=== PATIENT | male | born 1980 | race Caucasian/White ===

== ENCOUNTER 2021-12-28 15:08 | Inpatient (IN) | payer MEDICAID ==
[~2021-12-28] VITALS: Ht 170.2 cm; Wt 73.9 kg
[~2021-12-28 15:08] MED LIST: ARIP15TA27 PO; LURA20TA PO; OMEP20 PO
[2021-12-28 16:04] LABS: BASOPHILS % (AUTO) 0.7 % (0.0-2.0); EOSINOPHILS % (AUTO) 2.1 % (1.0-6.0); HEMATOCRIT 42.2 % (41-53); LYMPHOCYTES # (AUTO) 2.1 K/uL (1.0-4.8); LYMPHOCYTES % (AUTO) 31.9 % (22.0-44.0); MEAN CORPUSCULAR HEMOGLOBIN 29.5 pg (26.0-34.0); MEAN CORPUSCULAR HGB CONC 33.3 G/dL (31.0-37.0); MEAN CORPUSCULAR VOLUME 89 fL (80-100); MONOCYTES # (AUTO) 0.4 K/uL (0.1-1.0); MONOCYTES % (AUTO) 6.8 % (2.0-9.0); NEUTROPHILS # (AUTO) 3.8 K/uL (1.8-7.7); NEUTROPHILS % (AUTO) 58.5 % (40.0-70.0); PLATELET COUNT (AUTO) 269 K/uL (150-450); RED BLOOD CELL COUNT(AUTO) 4.75 MIL/uL (4.50-5.90); RED CELL DISTRIBUTION WIDTH 13.8 % (11.5-14.5)
[2021-12-28 16:11] LABS: ANION GAP 6 mmol/L (8-16); CALCIUM, TOTAL 8.9 mg/dL (8.8-10.5); CARBON DIOXIDE 30 mmol/L (22-29); CHLORIDE 103 mmol/L (98-107); CREATININE 0.88 mg/dL (0.60-1.30); GLOMERULAR FILTR. RATE CALC > 60 mL/min (>60); GLUCOSE,RANDOM 99 mg/dL (70-110); POTASSIUM 4.1 mmol/L (3.5-5.1); SODIUM SERUM 139 mmol/L (136-145); UREA NITROGEN, BLOOD 10 mg/dL (7-18)
[2021-12-28 16:17] LABS: ALANINE AMINOTRANSFERASE 22 U/L (12-78); ALBUMIN 3.9 g/dL (3.4-5.0); ALKALINE PHOSPHATASE 120 U/L (46-116); ASPARTATE AMINOTRANSFERASE 17 U/L (15-37); BILIRUBIN,TOTAL 0.9 mg/dL (0.1-1.0); TOTAL PROTEIN, SERUM 7.7 g/dL (6.4-8.2)
[2021-12-28 19:26] LABS: COVID AG,FIA SOURCE NASOPHARYNGEAL
[2021-12-29 02:30] VITALS: BP 115/65
[2021-12-29 02:59] VITALS: BP 97/65
[2021-12-29] MEDS ORDERED: INFLUENZA VIRUS VACCINE QVS 2021-22 (6MO+)/PF 60 MCG/0.5 ML SYRINGE IM. ONE (04:15)
[2021-12-29 08:07] LABS: CHOL/HDL RATIO 3.1 (4.2-7.3)
[2021-12-29] MEDS: LORazepam 2 MG TABLET PO PRN ×2 (08:08→16:21)
[2021-12-29] MEDS: HALOPERIDOL 5 MG TABLET PO PRN (08:08)
[2021-12-29] MEDS ORDERED: GuaiFENesin/D-METHORPHAN [SUGAR-FREE] 200-20MG/10 ML SYRUP UDCUP PO PRN (13:30)
[2021-12-29] MEDS ORDERED: MAG HYDROX/AL HYDROX/SIMETH ES 30 ML SUSPENSION UDCUP PO PRN (13:30)
[2021-12-29] MEDS ORDERED: DOCUSATE SODIUM 100 MG CAPSULE PO PRN (13:30)
[2021-12-29] MEDS ORDERED: ALBUTEROL SULFATE HFA 90 MCG/PUFF 8 GM INHALER IH PRN (13:30)
[2021-12-29] MEDS ORDERED: MAGNESIUM HYDROXIDE SUSPENSION 30 ML UDCUP PO PRN (13:30)
[2021-12-29] MEDS ORDERED: ONDANSETRON HCL 4 MG TABLET PO PRN (13:30)
[2021-12-29] MEDS ORDERED: PETROLATUM,WHITE 28 GM JELLY TP PRN (13:30)
[2021-12-29] MEDS ORDERED: CloNIDine HCL 0.1 MG TABLET PO PRN (13:30)
[2021-12-29] MEDS ORDERED: LOPERAMIDE HCL 2 MG CAPSULE PO PRN (13:30)
[2021-12-29 16:00] VITALS: BP 123/79
[2021-12-29] MEDS: ARIPiprazole 15 MG TABLET PO SCH (16:15)
[2021-12-29] MEDS: LURASIDONE HCL 60 MG TABLET PO SCH (20:54)
[2021-12-29] MEDS ORDERED: LORazepam 2 MG/ML VIAL IM ONE (21:15)
[2021-12-29] MEDS ORDERED: HALOPERIDOL LACTATE 5 MG/ML VIAL IM ONE (21:15)
[2021-12-29] MEDS ORDERED: DiphenhydrAMINE HCL 50 MG/ML VIAL IM ONE (21:15)
[2021-12-30 08:00] VITALS: BP 123/70
[2021-12-30] MEDS: OMEPRAZOLE 20 MG CAPSULE PO SCH (09:00)
[2021-12-30] MEDS: ARIPiprazole 15 MG TABLET PO SCH (09:00)
[2021-12-30] MEDS: LURASIDONE HCL 60 MG TABLET PO SCH (21:00)
[2021-12-31] MEDS: OMEPRAZOLE 20 MG CAPSULE PO SCH ×2 (09:00→09:02)
[2021-12-31] MEDS: ARIPiprazole 15 MG TABLET PO SCH ×2 (09:00→09:02)
[2021-12-31 09:54] VITALS: BP 151/93
[2021-12-31 16:00] VITALS: BP 152/82
[2021-12-31] MEDS: LURASIDONE HCL 60 MG TABLET PO SCH (20:46)
[2022-01-01 04:34] VITALS: BP 146/82
[2022-01-01] MEDS: OMEPRAZOLE 20 MG CAPSULE PO SCH (09:00)
[2022-01-01] MEDS: ARIPiprazole 15 MG TABLET PO SCH (09:00)
[2022-01-01 09:28] VITALS: BP 127/83
[2022-01-01 16:01] VITALS: BP 120/80
[2022-01-01] MEDS: LORazepam 2 MG TABLET PO PRN (17:43)
[2022-01-01] MEDS: HALOPERIDOL 5 MG TABLET PO PRN (19:00)
[2022-01-01] MEDS: LURASIDONE HCL 60 MG TABLET PO SCH (21:34)
[2022-01-02] MEDS: OMEPRAZOLE 20 MG CAPSULE PO SCH (09:00)
[2022-01-02] MEDS: ARIPiprazole 15 MG TABLET PO SCH (09:00)
[2022-01-02 10:22] VITALS: BP 127/77
[2022-01-02 16:03] VITALS: BP 129/79
[2022-01-02] MEDS: LORazepam 2 MG TABLET PO PRN (17:23)
[2022-01-02] MEDS: LURASIDONE HCL 60 MG TABLET PO SCH (21:20)
[2022-01-03 08:00] VITALS: BP 138/90
[2022-01-03] MEDS: HALOPERIDOL 5 MG TABLET PO PRN ×2 (12:40→17:34)
[2022-01-03] MEDS: LORazepam 2 MG TABLET PO PRN ×2 (12:40→17:34)
[2022-01-03] MEDS: OMEPRAZOLE 20 MG CAPSULE PO SCH (12:41)
[2022-01-03 15:13] LABS: COVID AG,FIA SOURCE NASOPHARYNGEAL
[2022-01-03 16:43] VITALS: BP 129/84
[2022-01-03] MEDS: LURASIDONE HCL 60 MG TABLET PO SCH (21:00)
[2022-01-04 04:02] VITALS: BP 117/84
[2022-01-04] MEDS: OMEPRAZOLE 20 MG CAPSULE PO SCH (09:00)
[2022-01-04 09:59] VITALS: BP 160/91
[2022-01-04 16:00] VITALS: BP 154/86
[2022-01-04] MEDS: LORazepam 2 MG TABLET PO PRN (17:34)
[2022-01-04] MEDS: HALOPERIDOL 5 MG TABLET PO PRN (18:56)
[2022-01-04] MEDS: LURASIDONE HCL 60 MG TABLET PO SCH (20:14)
[2022-01-05] MEDS: OMEPRAZOLE 20 MG CAPSULE PO SCH (09:00)
[2022-01-05 10:46] VITALS: BP 133/65
[2022-01-05 16:04] VITALS: BP 116/79
[2022-01-05] MEDS: LORazepam 2 MG TABLET PO PRN (18:30)
[2022-01-05] MEDS: HALOPERIDOL 5 MG TABLET PO PRN (18:30)
[2022-01-05] MEDS: LURASIDONE HCL 60 MG TABLET PO SCH (21:00)
[2022-01-06] MEDS: OMEPRAZOLE 20 MG CAPSULE PO SCH (09:00)
[2022-01-06 09:59] VITALS: BP 104/66
[2022-01-06 16:15] VITALS: BP 133/83
[2022-01-06] MEDS: HALOPERIDOL 5 MG TABLET PO PRN (17:19)
[2022-01-06] MEDS: LORazepam 2 MG TABLET PO PRN (17:20)
[2022-01-06] MEDS: LURASIDONE HCL 60 MG TABLET PO SCH (21:03)
[2022-01-07 08:10] VITALS: BP 120/81
[2022-01-07] MEDS: OMEPRAZOLE 20 MG CAPSULE PO SCH (13:43)
[2022-01-07] MEDS: IBUPROFEN 400 MG TABLET PO PRN (14:11)
[2022-01-07 16:43] VITALS: BP 145/85
[2022-01-07] MEDS: LORazepam 2 MG TABLET PO PRN (17:47)
[2022-01-07] MEDS: HALOPERIDOL 5 MG TABLET PO PRN (17:47)
[2022-01-07] MEDS: LURASIDONE HCL 60 MG TABLET PO SCH (21:00)
[2022-01-08 08:02] VITALS: BP 129/78
[2022-01-08] MEDS: OMEPRAZOLE 20 MG CAPSULE PO SCH (09:23)
[2022-01-08 16:18] VITALS: BP 121/82
[2022-01-08] MEDS: IBUPROFEN 400 MG TABLET PO PRN (16:50)
[2022-01-08] MEDS: LURASIDONE HCL 60 MG TABLET PO SCH (20:05)
[2022-01-09 04:48] VITALS: BP 118/85
[2022-01-09] MEDS: IBUPROFEN 400 MG TABLET PO PRN (05:58)
[2022-01-09 08:30] VITALS: BP 143/93
[2022-01-09] MEDS: OMEPRAZOLE 20 MG CAPSULE PO SCH (09:25)
[2022-01-09 16:07] VITALS: BP 149/93
[2022-01-09] MEDS: LORazepam 2 MG TABLET PO PRN (17:09)
[2022-01-09] MEDS: HALOPERIDOL 5 MG TABLET PO PRN (17:09)
[2022-01-09] MEDS: LURASIDONE HCL 60 MG TABLET PO SCH (20:11)
[2022-01-10 02:10] VITALS: BP 125/80
[2022-01-10] MEDS: OMEPRAZOLE 20 MG CAPSULE PO SCH ×2 (08:35→08:44)
[2022-01-10 10:22] VITALS: BP 159/97
[2022-01-10 15:14] LABS: COVID AG,FIA SOURCE NASAL SWAB
[2022-01-10 16:00] VITALS: BP 103/70
[2022-01-10] MEDS: LURASIDONE HCL 60 MG TABLET PO SCH (21:30)
[2022-01-11 08:51] VITALS: BP 145/95
[2022-01-11] MEDS: OMEPRAZOLE 20 MG CAPSULE PO SCH (09:00)
[2022-01-11 16:26] VITALS: BP 150/99
[2022-01-11] MEDS: HALOPERIDOL 5 MG TABLET PO PRN (17:05)
[2022-01-11] MEDS: LURASIDONE HCL 60 MG TABLET PO SCH (20:20)
[2022-01-11] MEDS: IBUPROFEN 400 MG TABLET PO PRN (20:41)
[2022-01-12] MEDS: OMEPRAZOLE 20 MG CAPSULE PO SCH (08:32)
[2022-01-12 16:00] VITALS: BP 129/91
[2022-01-12] MEDS: HALOPERIDOL 5 MG TABLET PO PRN (18:56)
[2022-01-12] MEDS: LURASIDONE HCL 60 MG TABLET PO SCH (20:56)
[2022-01-13] MEDS: NICOTINE 14 MG/24 HOUR PATCH TD PRN (11:58)
[2022-01-13] MEDS: OMEPRAZOLE 20 MG CAPSULE PO SCH (11:58)
[2022-01-13 13:00] VITALS: BP 142/86
[2022-01-13 16:00] VITALS: BP 124/88
[2022-01-13 18:44] VITALS: BP 129/87
[2022-01-13] MEDS: LORazepam 2 MG TABLET PO PRN (18:44)
[2022-01-13] MEDS: HALOPERIDOL 5 MG TABLET PO PRN (18:44)
[2022-01-13] MEDS: LURASIDONE HCL 60 MG TABLET PO SCH (20:37)
[2022-01-14] MEDS: OMEPRAZOLE 20 MG CAPSULE PO SCH (09:00)
[2022-01-14 10:12] VITALS: BP 134/86
[2022-01-14] MEDS: NICOTINE 14 MG/24 HOUR PATCH TD PRN (12:06)
[2022-01-14 17:11] VITALS: BP 108/69
[2022-01-14] MEDS: HALOPERIDOL 5 MG TABLET PO PRN (17:21)
[2022-01-14] MEDS: LORazepam 2 MG TABLET PO PRN (17:21)
[2022-01-14] MEDS: LURASIDONE HCL 60 MG TABLET PO SCH (20:15)
[2022-01-15] MEDS: BACITRACIN 28 GM OINTMENT TP SCH ×2 (08:41→16:19)
[2022-01-15] MEDS: OMEPRAZOLE 20 MG CAPSULE PO SCH (08:41)
[2022-01-15 08:52] VITALS: BP 106/58
[2022-01-15 16:52] VITALS: BP 11/68
[2022-01-15] MEDS: LURASIDONE HCL 60 MG TABLET PO SCH (20:09)
[2022-01-16] MEDS: OMEPRAZOLE 20 MG CAPSULE PO SCH (10:56)
[2022-01-16] MEDS: NICOTINE 14 MG/24 HOUR PATCH TD PRN (10:56)
[2022-01-16] MEDS: BACITRACIN 28 GM OINTMENT TP SCH ×2 (10:56→16:17)
[2022-01-16 12:37] LABS: COVID AG,FIA SOURCE NASOPHARYNGEAL
[2022-01-16] MEDS: IBUPROFEN 400 MG TABLET PO PRN (13:23)
[2022-01-16 16:31] VITALS: BP 143/96
[2022-01-16] MEDS: LURASIDONE HCL 60 MG TABLET PO SCH (20:06)
[2022-01-17] MEDS: OMEPRAZOLE 20 MG CAPSULE PO SCH (08:22)
[2022-01-17 09:28] VITALS: BP 135/93
[2022-01-17] MEDS: LORazepam 2 MG TABLET PO PRN ×2 (10:39→16:23)
[2022-01-17] MEDS: BACITRACIN 28 GM OINTMENT TP SCH ×2 (14:15→17:41)
[2022-01-17 16:40] VITALS: BP 130/97
[2022-01-17] MEDS: LURASIDONE HCL 60 MG TABLET PO SCH (20:11)
[2022-01-17] MEDS: ZOLPIDEM TARTRATE 10 MG TABLET PO PRN (20:14)
[2022-01-18] MEDS: BACITRACIN 28 GM OINTMENT TP SCH ×2 (09:00→16:30)
[2022-01-18] MEDS: OMEPRAZOLE 20 MG CAPSULE PO SCH (09:00)
[2022-01-18 10:04] VITALS: BP 114/78
[2022-01-18 16:00] VITALS: BP 129/79
[2022-01-18] MEDS: LURASIDONE HCL 60 MG TABLET PO SCH (20:40)
[2022-01-18] MEDS: ZOLPIDEM TARTRATE 10 MG TABLET PO PRN (20:40)
[2022-01-19 04:34] VITALS: BP 120/80
[2022-01-19 08:00] VITALS: BP 119/75
[2022-01-19] MEDS: OMEPRAZOLE 20 MG CAPSULE PO SCH (10:30)
[2022-01-19] MEDS: BACITRACIN 28 GM OINTMENT TP SCH ×2 (10:30→16:17)
[2022-01-19 16:36] VITALS: BP 128/93
[2022-01-19] MEDS: ZOLPIDEM TARTRATE 10 MG TABLET PO PRN (20:13)
[2022-01-19] MEDS: LURASIDONE HCL 60 MG TABLET PO SCH (20:13)
[2022-01-19] MEDS: HALOPERIDOL 5 MG TABLET PO PRN (22:11)
[2022-01-19] MEDS: IBUPROFEN 400 MG TABLET PO PRN (22:11)
[2022-01-20 05:17] VITALS: BP 134/81
[2022-01-20 08:00] VITALS: BP 132/85
[2022-01-20] MEDS: BACITRACIN 28 GM OINTMENT TP SCH ×2 (09:30→17:49)
[2022-01-20] MEDS: OMEPRAZOLE 20 MG CAPSULE PO SCH (09:30)
[2022-01-20] MEDS: NICOTINE 14 MG/24 HOUR PATCH TD PRN (11:27)
[2022-01-20 16:24] VITALS: BP 110/89
[2022-01-20] MEDS: HALOPERIDOL 5 MG TABLET PO PRN (17:49)
[2022-01-20] MEDS: LORazepam 2 MG TABLET PO PRN (17:49)
[2022-01-20] MEDS: LURASIDONE HCL 60 MG TABLET PO SCH (20:51)
[2022-01-21 08:00] VITALS: BP 130/88
[2022-01-21] MEDS: OMEPRAZOLE 20 MG CAPSULE PO SCH (09:29)
[2022-01-21] MEDS: NICOTINE 14 MG/24 HOUR PATCH TD PRN (09:29)
[2022-01-21] MEDS: BACITRACIN 28 GM OINTMENT TP SCH ×2 (09:30→17:00)
[2022-01-21 10:40] VITALS: BP 130/88
[2022-01-21 16:19] VITALS: BP 140/83
[2022-01-21] MEDS: LORazepam 2 MG TABLET PO PRN (18:08)
[2022-01-21] MEDS: HALOPERIDOL 5 MG TABLET PO PRN (18:08)
[2022-01-21] MEDS: LURASIDONE HCL 60 MG TABLET PO SCH (21:33)
[2022-01-22 08:30] VITALS: BP 126/81
[2022-01-22] MEDS: OMEPRAZOLE 20 MG CAPSULE PO SCH (09:23)
[2022-01-22] MEDS: BACITRACIN 28 GM OINTMENT TP SCH ×2 (09:24→18:32)
[2022-01-22 16:30] VITALS: BP 149/89
[2022-01-22] MEDS: LURASIDONE HCL 60 MG TABLET PO SCH (21:46)
[2022-01-23] MEDS: OMEPRAZOLE 20 MG CAPSULE PO SCH (08:38)
[2022-01-23 08:39] VITALS: BP 147/85
[2022-01-23] MEDS: BACITRACIN 28 GM OINTMENT TP SCH ×2 (10:57→16:15)
[2022-01-23 12:39] LABS: COVID AG,FIA SOURCE NASOPHARYNGEAL
[2022-01-23] MEDS: HALOPERIDOL 5 MG TABLET PO PRN (16:15)
[2022-01-23 16:23] VITALS: BP 141/76
[2022-01-23] MEDS: LURASIDONE HCL 60 MG TABLET PO SCH (20:15)
[2022-01-24 02:57] VITALS: BP 114/72
[2022-01-24] MEDS: OMEPRAZOLE 20 MG CAPSULE PO SCH (08:17)
[2022-01-24 09:08] VITALS: BP 139/72
[2022-01-24] MEDS: BACITRACIN 28 GM OINTMENT TP SCH ×2 (09:28→16:25)
[2022-01-24 10:05] VITALS: BP 136/78
[2022-01-24] MEDS: IBUPROFEN 400 MG TABLET PO PRN (10:05)
[2022-01-24 16:07] VITALS: BP 131/87
[2022-01-24] MEDS: LURASIDONE HCL 60 MG TABLET PO SCH (20:32)
[2022-01-25 00:40] VITALS: BP 138/84
[2022-01-25] MEDS: ACETAMINOPHEN 325 MG TABLET PO PRN (00:41)
[2022-01-25] MEDS: ZOLPIDEM TARTRATE 10 MG TABLET PO PRN (00:41)
[2022-01-25 08:00] VITALS: BP 138/99
[2022-01-25] MEDS: BACITRACIN 28 GM OINTMENT TP SCH ×2 (08:48→17:20)
[2022-01-25] MEDS: OMEPRAZOLE 20 MG CAPSULE PO SCH (08:48)
[2022-01-25 16:16] VITALS: BP 130/98
[2022-01-25] MEDS: LORazepam 2 MG TABLET PO PRN (17:21)
[2022-01-25] MEDS: HALOPERIDOL 5 MG TABLET PO PRN (17:21)
[2022-01-25] MEDS: LURASIDONE HCL 60 MG TABLET PO SCH (21:18)
[2022-01-26] MEDS: OMEPRAZOLE 20 MG CAPSULE PO SCH (08:26)
[2022-01-26 08:27] VITALS: BP 137/91
[2022-01-26] MEDS: IBUPROFEN 400 MG TABLET PO PRN (08:27)
[2022-01-26] MEDS: BACITRACIN 28 GM OINTMENT TP SCH ×2 (09:00→17:57)
[2022-01-26 16:36] VITALS: BP 134/79
[2022-01-26] MEDS: LORazepam 2 MG TABLET PO PRN (17:57)
[2022-01-26] MEDS: HALOPERIDOL 5 MG TABLET PO PRN (17:57)
[2022-01-26] MEDS: LURASIDONE HCL 60 MG TABLET PO SCH (21:25)
[2022-01-27 08:45] VITALS: BP 149/89
[2022-01-27] MEDS: OMEPRAZOLE 20 MG CAPSULE PO SCH (09:01)
[2022-01-27] MEDS: BACITRACIN 28 GM OINTMENT TP SCH ×2 (09:02→17:00)
[2022-01-27 16:12] VITALS: BP 137/81
[2022-01-27] MEDS: LORazepam 2 MG TABLET PO PRN (18:03)
[2022-01-27] MEDS: HALOPERIDOL 5 MG TABLET PO PRN (18:03)
[2022-01-27] MEDS: LURASIDONE HCL 60 MG TABLET PO SCH (21:06)
[2022-01-28 08:00] VITALS: BP 132/78
[2022-01-28] MEDS: BACITRACIN 28 GM OINTMENT TP SCH ×2 (08:23→16:29)
[2022-01-28] MEDS: OMEPRAZOLE 20 MG CAPSULE PO SCH (08:23)
[2022-01-28 16:07] VITALS: BP 121/80
[2022-01-28] MEDS: ARIPiprazole ER SUSPENSION 400 MG PRE-FILLED DUAL CHAMBER SYRINGE IM SCH (16:29)
[2022-01-28] MEDS: LURASIDONE HCL 60 MG TABLET PO SCH (20:12)
[2022-01-29 08:30] VITALS: BP 131/93
[2022-01-29] MEDS: BACITRACIN 28 GM OINTMENT TP SCH ×2 (08:51→16:16)
[2022-01-29] MEDS: OMEPRAZOLE 20 MG CAPSULE PO SCH (08:51)
[2022-01-29 13:30] LABS: APPEARANCE,URINE CLEAR (CLEAR); BILIRUBIN,URINE NEGATIVE (NEGATIVE); GLUCOSE, URINE (UA) NEGATIVE (NEGATIVE); KETONES,URINE NEGATIVE (NEGATIVE); LEUKOCYTE ESTERASE ,URINE NEGATIVE (NEGATIVE); NITRATE,URINE NEGATIVE (NEGATIVE); OCCULT BLOOD,URINE NEGATIVE (NEGATIVE); PH,URINE 5.5 (5.0-8.0); PROTEIN,URINE NEGATIVE (NEGATIVE); SPECIFIC GRAVITIY, URINE 1.014 (1.003-1.030); UROBILINOGEN,URINE <=1.0 mg/dL (<=1.0)
[2022-01-29 16:20] VITALS: BP 123/71
[2022-01-29] MEDS: LURASIDONE HCL 60 MG TABLET PO SCH (20:21)
[2022-01-30 05:56] VITALS: BP 110/71
[2022-01-30] MEDS: OMEPRAZOLE 20 MG CAPSULE PO SCH (08:18)
[2022-01-30] MEDS: BACITRACIN 28 GM OINTMENT TP SCH ×2 (08:19→16:53)
[2022-01-30 09:26] VITALS: BP 134/92
[2022-01-30 12:34] LABS: COVID AG,FIA SOURCE NASOPHARYNGEAL
[2022-01-30 16:11] VITALS: BP 120/83
[2022-01-30] MEDS: LURASIDONE HCL 60 MG TABLET PO SCH (20:22)
[2022-01-31 08:15] VITALS: BP 118/79
[2022-01-31] MEDS: OMEPRAZOLE 20 MG CAPSULE PO SCH (08:39)
[2022-01-31] MEDS: BACITRACIN 28 GM OINTMENT TP SCH ×2 (08:40→16:08)
[2022-01-31] MEDS: HALOPERIDOL 5 MG TABLET PO PRN (16:04)
[2022-01-31 17:42] VITALS: BP 121/80
[2022-01-31] MEDS: LURASIDONE HCL 60 MG TABLET PO SCH (20:15)
[2022-02-01 08:07] VITALS: BP 144/86
[2022-02-01] MEDS: OMEPRAZOLE 20 MG CAPSULE PO SCH (08:16)
[2022-02-01] MEDS: BACITRACIN 28 GM OINTMENT TP SCH ×2 (08:16→16:16)
[2022-02-01 16:40] VITALS: BP 130/86
[2022-02-01] MEDS: LURASIDONE HCL 60 MG TABLET PO SCH (20:03)
[2022-02-02] MEDS: OMEPRAZOLE 20 MG CAPSULE PO SCH (08:29)
[2022-02-02 09:00] VITALS: BP 136/86
[2022-02-02] MEDS: BACITRACIN 28 GM OINTMENT TP SCH ×2 (09:00→16:15)
[2022-02-02 14:29] VITALS: BP 129/74
[2022-02-02] MEDS: IBUPROFEN 400 MG TABLET PO PRN (14:29)
[2022-02-02 16:26] VITALS: BP 122/85
[2022-02-02] MEDS: LORazepam 2 MG TABLET PO PRN (16:30)
[2022-02-02] MEDS: LURASIDONE HCL 60 MG TABLET PO SCH (20:50)
[2022-02-03] MEDS: OMEPRAZOLE 20 MG CAPSULE PO SCH (08:15)
[2022-02-03] MEDS: BACITRACIN 28 GM OINTMENT TP SCH ×2 (08:17→17:03)
[2022-02-03 16:47] VITALS: BP 125/83
[2022-02-03] MEDS: LORazepam 2 MG TABLET PO PRN (17:04)
[2022-02-03] MEDS: HALOPERIDOL 5 MG TABLET PO PRN (17:04)
[2022-02-03] MEDS: LURASIDONE HCL 60 MG TABLET PO SCH (20:38)
[2022-02-04] MEDS: BACITRACIN 28 GM OINTMENT TP SCH ×2 (08:28→16:15)
[2022-02-04] MEDS: OMEPRAZOLE 20 MG CAPSULE PO SCH (08:28)
[2022-02-04 09:36] VITALS: BP 118/79
[2022-02-04 16:00] VITALS: BP 130/80
[2022-02-04] MEDS: LURASIDONE HCL 60 MG TABLET PO SCH (20:15)
[2022-02-05] MEDS: OMEPRAZOLE 20 MG CAPSULE PO SCH (08:28)
[2022-02-05 08:45] VITALS: BP 138/83
[2022-02-05] MEDS: BACITRACIN 28 GM OINTMENT TP SCH ×2 (13:22→16:23)
[2022-02-05] MEDS: LORazepam 2 MG TABLET PO PRN (16:22)
[2022-02-05 16:26] VITALS: BP 135/69
[2022-02-05] MEDS: LURASIDONE HCL 60 MG TABLET PO SCH (21:31)
[2022-02-06 08:55] LABS: COVID AG,FIA SOURCE NASAL SWAB
[2022-02-06 09:01] VITALS: BP 139/93
[2022-02-06] MEDS: OMEPRAZOLE 20 MG CAPSULE PO SCH (09:08)
[2022-02-06] MEDS: BACITRACIN 28 GM OINTMENT TP SCH ×2 (09:08→16:12)
[2022-02-06] MEDS: LORazepam 2 MG TABLET PO PRN (16:12)
[2022-02-06 16:13] VITALS: BP 141/94
[2022-02-06] MEDS: LURASIDONE HCL 60 MG TABLET PO SCH (21:25)
[2022-02-07] MEDS: BACITRACIN 28 GM OINTMENT TP SCH ×3 (09:00→17:29)
[2022-02-07] MEDS: OMEPRAZOLE 20 MG CAPSULE PO SCH (09:01)
[2022-02-07 09:37] VITALS: BP 140/78
[2022-02-07 12:03] VITALS: BP 139/74
[2022-02-07] MEDS: IBUPROFEN 400 MG TABLET PO PRN (12:03)
[2022-02-07] MEDS: BENZTROPINE MESYLATE 1 MG TABLET PO SCH ×2 (12:07→17:29)
[2022-02-07 16:15] VITALS: BP 128/77
[2022-02-07] MEDS: HALOPERIDOL 5 MG TABLET PO PRN (17:29)
[2022-02-07] MEDS: LORazepam 2 MG TABLET PO PRN (17:29)
[2022-02-07] MEDS: LURASIDONE HCL 60 MG TABLET PO SCH (20:58)
[2022-02-08 08:06] VITALS: BP 119/79
[2022-02-08] MEDS: OMEPRAZOLE 20 MG CAPSULE PO SCH (09:25)
[2022-02-08] MEDS: BENZTROPINE MESYLATE 1 MG TABLET PO SCH ×2 (09:26→16:12)
[2022-02-08] MEDS: BACITRACIN 28 GM OINTMENT TP SCH ×2 (09:26→16:12)
[2022-02-08 16:54] VITALS: BP 122/80
[2022-02-08] MEDS: LURASIDONE HCL 60 MG TABLET PO SCH (20:11)
[2022-02-09] MEDS: OMEPRAZOLE 20 MG CAPSULE PO SCH (08:03)
[2022-02-09] MEDS: BENZTROPINE MESYLATE 1 MG TABLET PO SCH ×2 (08:03→17:26)
[2022-02-09 08:22] VITALS: BP 133/86
[2022-02-09] MEDS: BACITRACIN 28 GM OINTMENT TP SCH ×2 (12:48→17:25)
[2022-02-09 16:12] VITALS: BP 147/99
[2022-02-09] MEDS: LORazepam 2 MG TABLET PO PRN (17:26)
[2022-02-09] MEDS: HALOPERIDOL 5 MG TABLET PO PRN (17:26)
[2022-02-09] MEDS: LURASIDONE HCL 60 MG TABLET PO SCH (20:43)
[2022-02-10 08:44] VITALS: BP 133/82
[2022-02-10] MEDS: OMEPRAZOLE 20 MG CAPSULE PO SCH (08:59)
[2022-02-10] MEDS: BENZTROPINE MESYLATE 1 MG TABLET PO SCH ×2 (08:59→16:13)
[2022-02-10] MEDS: BACITRACIN 28 GM OINTMENT TP SCH ×2 (09:00→16:13)
[2022-02-10 16:03] VITALS: BP 140/86
[2022-02-10] MEDS: IBUPROFEN 400 MG TABLET PO PRN (17:01)
[2022-02-10] MEDS: LURASIDONE HCL 60 MG TABLET PO SCH (20:30)
[2022-02-11 08:03] VITALS: BP 128/80
[2022-02-11] MEDS: OMEPRAZOLE 20 MG CAPSULE PO SCH (08:33)
[2022-02-11] MEDS: BENZTROPINE MESYLATE 1 MG TABLET PO SCH ×2 (08:33→17:19)
[2022-02-11] MEDS: BACITRACIN 28 GM OINTMENT TP SCH ×2 (09:00→17:19)
[2022-02-11] MEDS: NICOTINE 14 MG/24 HOUR PATCH TD PRN (10:01)
[2022-02-11 16:55] VITALS: BP 132/78
[2022-02-11] MEDS: HALOPERIDOL 5 MG TABLET PO PRN (18:00)
[2022-02-11] MEDS: LORazepam 2 MG TABLET PO PRN (18:00)
[2022-02-11] MEDS: LURASIDONE HCL 60 MG TABLET PO SCH (20:59)
[2022-02-12 08:19] VITALS: BP 128/84
[2022-02-12] MEDS: BACITRACIN 28 GM OINTMENT TP SCH ×2 (09:00→16:12)
[2022-02-12] MEDS: OMEPRAZOLE 20 MG CAPSULE PO SCH (09:12)
[2022-02-12] MEDS: BENZTROPINE MESYLATE 1 MG TABLET PO SCH ×2 (09:12→16:12)
[2022-02-12 16:41] VITALS: BP 127/87
[2022-02-12 19:07] VITALS: BP 113/78
[2022-02-12] MEDS: HALOPERIDOL 5 MG TABLET PO PRN (19:07)
[2022-02-12] MEDS: LORazepam 2 MG TABLET PO PRN (19:07)
[2022-02-12] MEDS: LURASIDONE HCL 60 MG TABLET PO SCH (20:48)
[2022-02-13 08:00] VITALS: BP 107/58
[2022-02-13] MEDS: OMEPRAZOLE 20 MG CAPSULE PO SCH (08:01)
[2022-02-13] MEDS: BENZTROPINE MESYLATE 1 MG TABLET PO SCH ×2 (08:01→17:11)
[2022-02-13 09:55] LABS: COVID AG,FIA SOURCE NASOPHARYNGEAL
[2022-02-13] MEDS: BACITRACIN 28 GM OINTMENT TP SCH ×2 (12:24→17:09)
[2022-02-13 16:00] VITALS: BP 124/88
[2022-02-13] MEDS: LURASIDONE HCL 60 MG TABLET PO SCH (20:23)
[2022-02-14 08:02] VITALS: BP 130/88
[2022-02-14] MEDS: OMEPRAZOLE 20 MG CAPSULE PO SCH (08:20)
[2022-02-14] MEDS: BACITRACIN 28 GM OINTMENT TP SCH ×2 (08:20→17:04)
[2022-02-14] MEDS: BENZTROPINE MESYLATE 1 MG TABLET PO SCH ×2 (08:20→17:04)
[2022-02-14 16:02] VITALS: BP 139/70
[2022-02-14 16:20] VITALS: BP 139/70
[2022-02-14] MEDS: HALOPERIDOL 5 MG TABLET PO PRN (18:00)
[2022-02-14] MEDS: LORazepam 2 MG TABLET PO PRN (18:00)
[2022-02-14] MEDS: LURASIDONE HCL 60 MG TABLET PO SCH (20:58)
[2022-02-15 08:05] VITALS: BP 132/74
[2022-02-15] MEDS: OMEPRAZOLE 20 MG CAPSULE PO SCH (08:12)
[2022-02-15] MEDS: BENZTROPINE MESYLATE 1 MG TABLET PO SCH ×2 (08:12→16:08)
[2022-02-15] MEDS: BACITRACIN 28 GM OINTMENT TP SCH ×2 (09:00→16:09)
[2022-02-15 16:00] VITALS: BP 141/82
[2022-02-15] MEDS: LURASIDONE HCL 60 MG TABLET PO SCH (20:14)
[2022-02-16] MEDS: BENZTROPINE MESYLATE 1 MG TABLET PO SCH ×2 (08:28→17:15)
[2022-02-16] MEDS: OMEPRAZOLE 20 MG CAPSULE PO SCH (08:28)
[2022-02-16 08:30] VITALS: BP 122/83
[2022-02-16] MEDS: BACITRACIN 28 GM OINTMENT TP SCH ×2 (09:00→17:15)
[2022-02-16] MEDS: LORazepam 2 MG TABLET PO PRN (17:15)
[2022-02-16] MEDS: HALOPERIDOL 5 MG TABLET PO PRN (17:15)
[2022-02-16 17:44] VITALS: BP 139/80
[2022-02-16] MEDS: LURASIDONE HCL 60 MG TABLET PO SCH (21:03)
[2022-02-17 08:00] VITALS: BP 116/80
[2022-02-17] MEDS: BENZTROPINE MESYLATE 1 MG TABLET PO SCH ×2 (08:18→16:59)
[2022-02-17] MEDS: OMEPRAZOLE 20 MG CAPSULE PO SCH (08:18)
[2022-02-17] MEDS: BACITRACIN 28 GM OINTMENT TP SCH ×2 (09:00→16:59)
[2022-02-17 16:00] VITALS: BP 132/81
[2022-02-17] MEDS: HALOPERIDOL 5 MG TABLET PO PRN (17:00)
[2022-02-17] MEDS: LORazepam 2 MG TABLET PO PRN (17:00)
[2022-02-17] MEDS: LURASIDONE HCL 60 MG TABLET PO SCH (20:50)
[2022-02-18 04:48] VITALS: BP 128/86
[2022-02-18 08:30] VITALS: BP 118/86
[2022-02-18] MEDS: BACITRACIN 28 GM OINTMENT TP SCH ×2 (09:00→16:13)
[2022-02-18] MEDS: BENZTROPINE MESYLATE 1 MG TABLET PO SCH ×2 (09:04→16:13)
[2022-02-18] MEDS: OMEPRAZOLE 20 MG CAPSULE PO SCH (09:04)
[2022-02-18 16:00] VITALS: BP 120/82
[2022-02-18] MEDS: LURASIDONE HCL 60 MG TABLET PO SCH (20:06)
[2022-02-19] MEDS: OMEPRAZOLE 20 MG CAPSULE PO SCH (08:30)
[2022-02-19] MEDS: BENZTROPINE MESYLATE 1 MG TABLET PO SCH ×2 (08:30→16:12)
[2022-02-19] MEDS: BACITRACIN 28 GM OINTMENT TP SCH ×2 (08:31→16:29)
[2022-02-19 09:18] VITALS: BP 138/58
[2022-02-19 16:32] VITALS: BP 125/84
[2022-02-19 16:35] VITALS: BP 125/84
[2022-02-19] MEDS: LURASIDONE HCL 60 MG TABLET PO SCH (20:20)
[2022-02-20 08:26] VITALS: BP 150/75
[2022-02-20] MEDS: BACITRACIN 28 GM OINTMENT TP SCH ×2 (08:52→16:07)
[2022-02-20] MEDS: OMEPRAZOLE 20 MG CAPSULE PO SCH (08:52)
[2022-02-20] MEDS: BENZTROPINE MESYLATE 1 MG TABLET PO SCH ×2 (08:52→16:07)
[2022-02-20 15:02] LABS: COVID AG,FIA SOURCE NASOPHARYNGEAL
[2022-02-20 16:59] VITALS: BP 130/80
[2022-02-20] MEDS: LURASIDONE HCL 60 MG TABLET PO SCH (20:14)
[2022-02-21 08:00] VITALS: BP 142/95
[2022-02-21] MEDS: OMEPRAZOLE 20 MG CAPSULE PO SCH (08:52)
[2022-02-21] MEDS: BACITRACIN 28 GM OINTMENT TP SCH ×2 (08:52→17:20)
[2022-02-21] MEDS: BENZTROPINE MESYLATE 1 MG TABLET PO SCH ×2 (08:52→17:21)
[2022-02-21 16:52] VITALS: BP 116/81
[2022-02-21] MEDS: LORazepam 2 MG TABLET PO PRN (17:21)
[2022-02-21] MEDS: HALOPERIDOL 5 MG TABLET PO PRN (17:21)
[2022-02-21] MEDS: LURASIDONE HCL 60 MG TABLET PO SCH (21:31)
[2022-02-22] MEDS: OMEPRAZOLE 20 MG CAPSULE PO SCH (08:49)
[2022-02-22] MEDS: BENZTROPINE MESYLATE 1 MG TABLET PO SCH ×2 (08:49→16:01)
[2022-02-22] MEDS: BACITRACIN 28 GM OINTMENT TP SCH ×2 (09:00→16:01)
[2022-02-22 16:09] VITALS: BP 134/84
[2022-02-22] MEDS: LURASIDONE HCL 60 MG TABLET PO SCH (20:19)
[2022-02-23] MEDS: ZOLPIDEM TARTRATE 10 MG TABLET PO PRN (00:56)
[2022-02-23 01:00] VITALS: BP 115/75
[2022-02-23 08:00] VITALS: BP 146/68
[2022-02-23] MEDS: BACITRACIN 28 GM OINTMENT TP SCH ×2 (09:00→16:13)
[2022-02-23] MEDS: BENZTROPINE MESYLATE 1 MG TABLET PO SCH ×2 (09:17→16:13)
[2022-02-23] MEDS: OMEPRAZOLE 20 MG CAPSULE PO SCH (09:17)
[2022-02-23] MEDS: SERTRALINE HCL 50 MG TABLET PO SCH (14:59)
[2022-02-23 16:00] VITALS: BP 145/92
[2022-02-23] MEDS: ACETAMINOPHEN 325 MG TABLET PO PRN (18:46)
[2022-02-23] MEDS: LURASIDONE HCL 60 MG TABLET PO SCH (20:13)
[2022-02-24 05:02] VITALS: BP 135/85
[2022-02-24] MEDS: BENZTROPINE MESYLATE 1 MG TABLET PO SCH ×2 (08:17→16:02)
[2022-02-24] MEDS: OMEPRAZOLE 20 MG CAPSULE PO SCH (08:17)
[2022-02-24] MEDS: SERTRALINE HCL 50 MG TABLET PO SCH (08:20)
[2022-02-24] MEDS: BACITRACIN 28 GM OINTMENT TP SCH ×2 (09:00→16:02)
[2022-02-24 16:00] VITALS: BP 157/88
[2022-02-24] MEDS: LURASIDONE HCL 60 MG TABLET PO SCH (20:09)
[2022-02-25] MEDS: BENZTROPINE MESYLATE 1 MG TABLET PO SCH ×2 (08:23→16:20)
[2022-02-25] MEDS: OMEPRAZOLE 20 MG CAPSULE PO SCH (08:23)
[2022-02-25] MEDS: SERTRALINE HCL 50 MG TABLET PO SCH (08:23)
[2022-02-25 09:22] VITALS: BP 131/88
[2022-02-25] MEDS: BACITRACIN 28 GM OINTMENT TP SCH ×2 (09:53→16:20)
[2022-02-25] MEDS: ARIPiprazole ER SUSPENSION 400 MG PRE-FILLED DUAL CHAMBER SYRINGE IM SCH (09:53)
[2022-02-25 16:07] VITALS: BP 145/63
[2022-02-25 18:52] VITALS: BP 123/88
[2022-02-25] MEDS: IBUPROFEN 400 MG TABLET PO PRN (18:52)
[2022-02-25] MEDS: HALOPERIDOL 5 MG TABLET PO PRN (18:54)
[2022-02-25] MEDS: LORazepam 2 MG TABLET PO PRN (18:54)
[2022-02-25] MEDS: LURASIDONE HCL 60 MG TABLET PO SCH (20:35)
[2022-02-26] MEDS: OMEPRAZOLE 20 MG CAPSULE PO SCH (08:17)
[2022-02-26] MEDS: BENZTROPINE MESYLATE 1 MG TABLET PO SCH ×2 (08:17→16:18)
[2022-02-26] MEDS: BACITRACIN 28 GM OINTMENT TP SCH ×2 (08:20→16:18)
[2022-02-26] MEDS: SERTRALINE HCL 50 MG TABLET PO SCH (08:20)
[2022-02-26 08:30] VITALS: BP 100/60
[2022-02-26 16:04] VITALS: BP 110/76
[2022-02-26] MEDS: LURASIDONE HCL 60 MG TABLET PO SCH (20:48)
[2022-02-27 09:00] VITALS: BP 143/87
[2022-02-27] MEDS: OMEPRAZOLE 20 MG CAPSULE PO SCH (09:22)
[2022-02-27] MEDS: BENZTROPINE MESYLATE 1 MG TABLET PO SCH ×2 (09:22→16:15)
[2022-02-27] MEDS: SERTRALINE HCL 50 MG TABLET PO SCH (09:23)
[2022-02-27] MEDS: BACITRACIN 28 GM OINTMENT TP SCH ×2 (09:23→16:15)
[2022-02-27 11:02] LABS: COVID AG,FIA SOURCE NASAL SWAB
[2022-02-27 16:04] VITALS: BP 118/83
[2022-02-27] MEDS: LURASIDONE HCL 60 MG TABLET PO SCH (20:36)
[2022-02-28] MEDS: BENZTROPINE MESYLATE 1 MG TABLET PO SCH ×2 (08:14→16:10)
[2022-02-28] MEDS: BACITRACIN 28 GM OINTMENT TP SCH ×2 (08:14→16:10)
[2022-02-28] MEDS: OMEPRAZOLE 20 MG CAPSULE PO SCH (08:14)
[2022-02-28] MEDS: SERTRALINE HCL 50 MG TABLET PO SCH (08:14)
[2022-02-28 09:59] VITALS: BP 125/74
[2022-02-28 16:40] VITALS: BP 110/80
[2022-02-28] MEDS: LURASIDONE HCL 60 MG TABLET PO SCH (20:08)
[2022-02-28] MEDS ORDERED: CloNIDine HCL 0.1 MG TABLET PO PRN (20:30)
[2022-02-28] MEDS ORDERED: ONDANSETRON HCL 4 MG TABLET PO PRN (20:30)
[2022-02-28] MEDS ORDERED: LOPERAMIDE HCL 2 MG CAPSULE PO PRN (20:30)
[2022-02-28] MEDS ORDERED: ACETAMINOPHEN 325 MG TABLET PO PRN (20:30)
[2022-02-28] MEDS ORDERED: BACITRACIN 28 GM OINTMENT TP PRN (20:30)
[2022-02-28] MEDS ORDERED: ALBUTEROL SULFATE HFA 90 MCG/PUFF 8 GM INHALER IH PRN (20:30)
[2022-02-28] MEDS ORDERED: MAG HYDROX/AL HYDROX/SIMETH ES 30 ML SUSPENSION UDCUP PO PRN (20:30)
[2022-02-28] MEDS ORDERED: DOCUSATE SODIUM 100 MG CAPSULE PO PRN (20:30)
[2022-02-28] MEDS ORDERED: IBUPROFEN 600 MG TABLET PO PRN (20:30)
[2022-02-28] MEDS ORDERED: BENZOCAINE/MENTHOL LOZENGE PO PRN (20:30)
[2022-02-28] MEDS ORDERED: PETROLATUM,WHITE 28 GM JELLY TP PRN (20:30)
[2022-02-28] MEDS ORDERED: OMEPRAZOLE 20 MG CAPSULE PO PRN (20:30)
[2022-02-28] MEDS ORDERED: MAGNESIUM HYDROXIDE SUSPENSION 30 ML UDCUP PO PRN (20:30)
[2022-03-01] MEDS: BACITRACIN 28 GM OINTMENT TP SCH ×2 (09:09→16:35)
[2022-03-01] MEDS: OMEPRAZOLE 20 MG CAPSULE PO SCH (09:09)
[2022-03-01] MEDS: BENZTROPINE MESYLATE 1 MG TABLET PO SCH ×2 (09:09→16:09)
[2022-03-01] MEDS: SERTRALINE HCL 50 MG TABLET PO SCH (09:09)
[2022-03-01 10:52] VITALS: BP 136/85
[2022-03-01 17:13] VITALS: BP 117/66
[2022-03-01] MEDS: LURASIDONE HCL 60 MG TABLET PO SCH (20:09)
[2022-03-02] MEDS: BENZTROPINE MESYLATE 1 MG TABLET PO SCH ×2 (08:23→16:08)
[2022-03-02] MEDS: SERTRALINE HCL 50 MG TABLET PO SCH (08:23)
[2022-03-02] MEDS: OMEPRAZOLE 20 MG CAPSULE PO SCH (08:23)
[2022-03-02] MEDS: BACITRACIN 28 GM OINTMENT TP SCH ×2 (08:24→16:08)
[2022-03-02 10:24] VITALS: BP 102/58
[2022-03-02 16:00] VITALS: BP 108/68
[2022-03-02] MEDS: LURASIDONE HCL 60 MG TABLET PO SCH (20:26)
[2022-03-03 08:00] VITALS: BP 129/83
[2022-03-03] MEDS: BACITRACIN 28 GM OINTMENT TP SCH ×2 (09:06→17:00)
[2022-03-03] MEDS: OMEPRAZOLE 20 MG CAPSULE PO SCH (09:06)
[2022-03-03] MEDS: BENZTROPINE MESYLATE 1 MG TABLET PO SCH ×2 (09:06→17:36)
[2022-03-03] MEDS: SERTRALINE HCL 50 MG TABLET PO SCH (09:06)
[2022-03-03 16:00] VITALS: BP 147/83
[2022-03-03] MEDS: HALOPERIDOL 5 MG TABLET PO PRN (17:38)
[2022-03-03] MEDS: LORazepam 2 MG TABLET PO PRN (17:38)
[2022-03-03] MEDS: LURASIDONE HCL 60 MG TABLET PO SCH (20:43)
[2022-03-04] MEDS: OMEPRAZOLE 20 MG CAPSULE PO SCH (08:10)
[2022-03-04] MEDS: BACITRACIN 28 GM OINTMENT TP SCH ×2 (08:10→16:42)
[2022-03-04] MEDS: SERTRALINE HCL 50 MG TABLET PO SCH (08:10)
[2022-03-04] MEDS: BENZTROPINE MESYLATE 1 MG TABLET PO SCH ×2 (08:10→16:09)
[2022-03-04 08:30] VITALS: BP 138/80
[2022-03-04 17:42] VITALS: BP 132/76
[2022-03-04] MEDS: LURASIDONE HCL 60 MG TABLET PO SCH (20:17)
[2022-03-05 08:00] VITALS: BP 128/77
[2022-03-05] MEDS: BACITRACIN 28 GM OINTMENT TP SCH ×2 (08:02→16:31)
[2022-03-05] MEDS: SERTRALINE HCL 50 MG TABLET PO SCH (08:02)
[2022-03-05] MEDS: OMEPRAZOLE 20 MG CAPSULE PO SCH (08:02)
[2022-03-05] MEDS: BENZTROPINE MESYLATE 1 MG TABLET PO SCH ×2 (08:02→16:31)
[2022-03-05 16:41] VITALS: BP 144/87
[2022-03-05] MEDS: LURASIDONE HCL 60 MG TABLET PO SCH (20:12)
[2022-03-05] MEDS: LORazepam 2 MG TABLET PO PRN (20:13)
[2022-03-06 08:00] VITALS: BP 142/96
[2022-03-06] MEDS: BENZTROPINE MESYLATE 1 MG TABLET PO SCH ×2 (08:19→16:14)
[2022-03-06] MEDS: SERTRALINE HCL 50 MG TABLET PO SCH (08:19)
[2022-03-06] MEDS: BACITRACIN 28 GM OINTMENT TP SCH ×2 (08:19→16:14)
[2022-03-06] MEDS: OMEPRAZOLE 20 MG CAPSULE PO SCH (08:19)
[2022-03-06 14:32] LABS: COVID AG,FIA SOURCE NASAL SWAB
[2022-03-06 16:41] VITALS: BP 129/93
[2022-03-06] MEDS: LURASIDONE HCL 60 MG TABLET PO SCH (20:43)
[2022-03-06] MEDS: LORazepam 2 MG TABLET PO PRN (20:45)
[2022-03-07] MEDS: OMEPRAZOLE 20 MG CAPSULE PO SCH (08:08)
[2022-03-07] MEDS: BENZTROPINE MESYLATE 1 MG TABLET PO SCH ×2 (08:08→16:22)
[2022-03-07] MEDS: SERTRALINE HCL 50 MG TABLET PO SCH (08:08)
[2022-03-07 08:45] VITALS: BP 157/89
[2022-03-07] MEDS: BACITRACIN 28 GM OINTMENT TP SCH ×2 (09:00→16:22)
[2022-03-07 16:00] VITALS: BP 152/80
[2022-03-07] MEDS: LURASIDONE HCL 60 MG TABLET PO SCH (20:10)
[2022-03-08 08:29] VITALS: BP 136/76
[2022-03-08] MEDS: SERTRALINE HCL 50 MG TABLET PO SCH (08:43)
[2022-03-08] MEDS: BENZTROPINE MESYLATE 1 MG TABLET PO SCH ×2 (08:43→16:29)
[2022-03-08] MEDS: OMEPRAZOLE 20 MG CAPSULE PO SCH (08:43)
[2022-03-08] MEDS: BACITRACIN 28 GM OINTMENT TP SCH ×2 (09:00→16:29)
[2022-03-08] MEDS ORDERED: BISACODYL 5 MG EC TABLET PO PRN (15:30)
[2022-03-08 16:05] VITALS: BP 104/69
[2022-03-08] MEDS: LORazepam 2 MG TABLET PO PRN (16:30)
[2022-03-08] MEDS: LURASIDONE HCL 60 MG TABLET PO SCH (20:38)
[2022-03-09 08:00] VITALS: BP 130/72
[2022-03-09] MEDS: SERTRALINE HCL 50 MG TABLET PO SCH (08:42)
[2022-03-09] MEDS: BACITRACIN 28 GM OINTMENT TP SCH ×2 (08:42→16:10)
[2022-03-09] MEDS: OMEPRAZOLE 20 MG CAPSULE PO SCH (08:42)
[2022-03-09] MEDS: BENZTROPINE MESYLATE 1 MG TABLET PO SCH ×2 (08:42→16:11)
[2022-03-09 16:00] VITALS: BP 107/66
[2022-03-09] MEDS: LORazepam 2 MG TABLET PO PRN (16:11)
[2022-03-09] MEDS: LURASIDONE HCL 60 MG TABLET PO SCH (20:53)
[2022-03-10 08:20] VITALS: BP 123/69
[2022-03-10] MEDS: BACITRACIN 28 GM OINTMENT TP SCH ×2 (09:00→16:55)
[2022-03-10] MEDS: SERTRALINE HCL 50 MG TABLET PO SCH (09:18)
[2022-03-10] MEDS: OMEPRAZOLE 20 MG CAPSULE PO SCH (09:18)
[2022-03-10] MEDS: BENZTROPINE MESYLATE 1 MG TABLET PO SCH ×2 (09:18→16:55)
[2022-03-10 16:00] VITALS: BP 118/75
[2022-03-10] MEDS: LURASIDONE HCL 60 MG TABLET PO SCH (21:24)
[2022-03-11 08:00] VITALS: BP 143/103
[2022-03-11] MEDS: BENZTROPINE MESYLATE 1 MG TABLET PO SCH ×2 (09:23→16:10)
[2022-03-11] MEDS: OMEPRAZOLE 20 MG CAPSULE PO SCH (09:23)
[2022-03-11] MEDS: SERTRALINE HCL 50 MG TABLET PO SCH (09:23)
[2022-03-11] MEDS: BACITRACIN 28 GM OINTMENT TP SCH ×2 (09:24→16:48)
[2022-03-11 17:02] VITALS: BP 136/61
[2022-03-11] MEDS: LURASIDONE HCL 60 MG TABLET PO SCH (20:16)
[2022-03-12] MEDS: SERTRALINE HCL 50 MG TABLET PO SCH (08:43)
[2022-03-12] MEDS: BENZTROPINE MESYLATE 1 MG TABLET PO SCH ×2 (08:43→17:22)
[2022-03-12] MEDS: OMEPRAZOLE 20 MG CAPSULE PO SCH (08:43)
[2022-03-12] MEDS: BACITRACIN 28 GM OINTMENT TP SCH ×2 (08:43→17:21)
[2022-03-12 09:33] VITALS: BP 126/83
[2022-03-12 16:42] VITALS: BP 132/88
[2022-03-12] MEDS: HALOPERIDOL 5 MG TABLET PO PRN (17:21)
[2022-03-12] MEDS: LORazepam 2 MG TABLET PO PRN (17:22)
[2022-03-12] MEDS: LURASIDONE HCL 60 MG TABLET PO SCH (20:52)
[2022-03-13] MEDS: SERTRALINE HCL 50 MG TABLET PO SCH (08:24)
[2022-03-13] MEDS: BENZTROPINE MESYLATE 1 MG TABLET PO SCH ×2 (08:24→17:03)
[2022-03-13] MEDS: BACITRACIN 28 GM OINTMENT TP SCH ×2 (08:24→17:00)
[2022-03-13] MEDS: OMEPRAZOLE 20 MG CAPSULE PO SCH (08:24)
[2022-03-13 08:42] VITALS: BP 127/88
[2022-03-13 14:28] LABS: COVID AG,FIA SOURCE NASOPHARYNGEAL
[2022-03-13 16:05] VITALS: BP 101/70
[2022-03-13] MEDS: HALOPERIDOL 5 MG TABLET PO PRN (17:03)
[2022-03-13] MEDS: LORazepam 2 MG TABLET PO PRN (17:03)
[2022-03-13] MEDS: LURASIDONE HCL 60 MG TABLET PO SCH (20:43)
[2022-03-14 08:10] VITALS: BP 121/71
[2022-03-14] MEDS: BENZTROPINE MESYLATE 1 MG TABLET PO SCH ×2 (08:28→16:29)
[2022-03-14] MEDS: SERTRALINE HCL 50 MG TABLET PO SCH (08:28)
[2022-03-14] MEDS: OMEPRAZOLE 20 MG CAPSULE PO SCH (08:28)
[2022-03-14] MEDS: BACITRACIN 28 GM OINTMENT TP SCH ×2 (08:29→16:28)
[2022-03-14 16:00] VITALS: BP 137/78
[2022-03-14] MEDS: HALOPERIDOL 5 MG TABLET PO PRN (16:29)
[2022-03-14] MEDS: LURASIDONE HCL 60 MG TABLET PO SCH (20:35)
[2022-03-15] MEDS: SERTRALINE HCL 50 MG TABLET PO SCH (07:48)
[2022-03-15] MEDS: OMEPRAZOLE 20 MG CAPSULE PO SCH (07:48)
[2022-03-15] MEDS: BENZTROPINE MESYLATE 1 MG TABLET PO SCH ×2 (07:48→16:16)
[2022-03-15] MEDS: BACITRACIN 28 GM OINTMENT TP SCH ×2 (09:00→16:16)
[2022-03-15 09:04] VITALS: BP 121/71
[2022-03-15 16:19] VITALS: BP 138/87
[2022-03-15] MEDS: LURASIDONE HCL 60 MG TABLET PO SCH (20:09)
[2022-03-16 08:00] VITALS: BP 130/92
[2022-03-16] MEDS: OMEPRAZOLE 20 MG CAPSULE PO SCH (09:03)
[2022-03-16] MEDS: SERTRALINE HCL 50 MG TABLET PO SCH (09:03)
[2022-03-16] MEDS: BENZTROPINE MESYLATE 1 MG TABLET PO SCH ×2 (09:03→17:22)
[2022-03-16] MEDS: BACITRACIN 28 GM OINTMENT TP SCH ×2 (09:03→17:21)
[2022-03-16] MEDS: IBUPROFEN 400 MG TABLET PO PRN (09:32)
[2022-03-16 16:48] VITALS: BP 108/65
[2022-03-16] MEDS: HALOPERIDOL 5 MG TABLET PO PRN (17:22)
[2022-03-16] MEDS: LORazepam 2 MG TABLET PO PRN (17:22)
[2022-03-16] MEDS: LURASIDONE HCL 60 MG TABLET PO SCH (20:30)
[2022-03-17 08:00] VITALS: BP 132/92
[2022-03-17] MEDS: SERTRALINE HCL 50 MG TABLET PO SCH (08:11)
[2022-03-17] MEDS: OMEPRAZOLE 20 MG CAPSULE PO SCH (08:11)
[2022-03-17] MEDS: BENZTROPINE MESYLATE 1 MG TABLET PO SCH ×2 (08:11→16:20)
[2022-03-17] MEDS: BACITRACIN 28 GM OINTMENT TP SCH ×2 (08:12→16:20)
[2022-03-17] MEDS: TUBERCULIN, PURIFIED PROTEIN DERIVATIVE 5 TU/0.1 ML SYRINGE ID ONE (14:29)
[2022-03-17] MEDS: HALOPERIDOL 5 MG TABLET PO PRN (16:20)
[2022-03-17] MEDS: LORazepam 2 MG TABLET PO PRN (16:20)
[2022-03-17 16:42] VITALS: BP 123/83
[2022-03-17] MEDS: LURASIDONE HCL 60 MG TABLET PO SCH (20:41)
[2022-03-18] MEDS: OMEPRAZOLE 20 MG CAPSULE PO SCH (08:30)
[2022-03-18] MEDS: SERTRALINE HCL 50 MG TABLET PO SCH (08:30)
[2022-03-18] MEDS: BENZTROPINE MESYLATE 1 MG TABLET PO SCH ×2 (08:30→16:34)
[2022-03-18] MEDS: BACITRACIN 28 GM OINTMENT TP SCH ×2 (08:30→16:34)
[2022-03-18 09:13] VITALS: BP 113/77
[2022-03-18] MEDS ORDERED: [UNRECOGNIZED DRUG - OTHER] IM. ONE (11:30)
[2022-03-18 16:00] VITALS: BP 118/76
[2022-03-18] MEDS: LURASIDONE HCL 60 MG TABLET PO SCH (20:30)
[2022-03-19] MEDS: BENZTROPINE MESYLATE 1 MG TABLET PO SCH ×2 (08:04→16:58)
[2022-03-19] MEDS: SERTRALINE HCL 50 MG TABLET PO SCH (08:04)
[2022-03-19] MEDS: OMEPRAZOLE 20 MG CAPSULE PO SCH (08:04)
[2022-03-19] MEDS: BACITRACIN 28 GM OINTMENT TP SCH ×2 (08:05→17:19)
[2022-03-19 10:12] VITALS: BP 105/73
[2022-03-19] MEDS: TUBERCULIN, PURIFIED PROTEIN DERIVATIVE 5 TU/0.1 ML SYRINGE ID ONE (12:54)
[2022-03-19 16:00] VITALS: BP 128/74
[2022-03-19] MEDS: LURASIDONE HCL 60 MG TABLET PO SCH (20:36)
[2022-03-20 05:16] VITALS: BP 115/77
[2022-03-20 08:04] VITALS: BP 137/91
[2022-03-20] MEDS: BACITRACIN 28 GM OINTMENT TP SCH ×2 (08:21→16:01)
[2022-03-20] MEDS: BENZTROPINE MESYLATE 1 MG TABLET PO SCH ×2 (08:21→16:01)
[2022-03-20] MEDS: SERTRALINE HCL 50 MG TABLET PO SCH (08:21)
[2022-03-20] MEDS: OMEPRAZOLE 20 MG CAPSULE PO SCH (08:21)
[2022-03-20 10:51] LABS: COVID AG,FIA SOURCE NASOPHARYNGEAL
[2022-03-20 13:01] VITALS: BP 137/91
[2022-03-20 16:59] VITALS: BP 128/90
[2022-03-20] MEDS: LURASIDONE HCL 60 MG TABLET PO SCH (20:04)
[2022-03-21] MEDS: SERTRALINE HCL 50 MG TABLET PO SCH (08:04)
[2022-03-21] MEDS: OMEPRAZOLE 20 MG CAPSULE PO SCH (08:04)
[2022-03-21] MEDS: BACITRACIN 28 GM OINTMENT TP SCH ×2 (08:04→16:05)
[2022-03-21] MEDS: BENZTROPINE MESYLATE 1 MG TABLET PO SCH ×2 (08:04→16:04)
[2022-03-21 08:42] VITALS: BP 124/84
[2022-03-21 16:05] VITALS: BP 140/73
[2022-03-21] MEDS: LURASIDONE HCL 60 MG TABLET PO SCH (20:08)
[2022-03-22 05:56] VITALS: BP_SYST 121; BP_SYST 136; BP_DIAS 72; BP_DIAS 76
[2022-03-22] MEDS: SERTRALINE HCL 50 MG TABLET PO SCH (08:40)
[2022-03-22] MEDS: OMEPRAZOLE 20 MG CAPSULE PO SCH (08:40)
[2022-03-22] MEDS: BENZTROPINE MESYLATE 1 MG TABLET PO SCH ×2 (08:40→16:02)
[2022-03-22] MEDS: BACITRACIN 28 GM OINTMENT TP SCH ×2 (09:00→16:04)
[2022-03-22 10:31] VITALS: BP 114/75
[2022-03-22] MEDS: HALOPERIDOL 5 MG TABLET PO PRN (16:03)
[2022-03-22 17:04] VITALS: BP 129/95
[2022-03-22] MEDS: LORazepam 2 MG TABLET PO PRN (19:57)
[2022-03-22] MEDS: LURASIDONE HCL 60 MG TABLET PO SCH (20:48)
[2022-03-23 08:27] VITALS: BP 143/99
[2022-03-23] MEDS: BENZTROPINE MESYLATE 1 MG TABLET PO SCH ×2 (08:40→16:27)
[2022-03-23] MEDS: BACITRACIN 28 GM OINTMENT TP SCH ×2 (08:40→17:13)
[2022-03-23] MEDS: OMEPRAZOLE 20 MG CAPSULE PO SCH (08:40)
[2022-03-23] MEDS: SERTRALINE HCL 50 MG TABLET PO SCH (08:40)
[2022-03-23] MEDS: LORazepam 2 MG TABLET PO PRN (16:26)
[2022-03-23 16:34] VITALS: BP 121/82
[2022-03-23] MEDS: LURASIDONE HCL 60 MG TABLET PO SCH (20:50)
[2022-03-24 08:00] VITALS: BP 147/85
[2022-03-24] MEDS: BENZTROPINE MESYLATE 1 MG TABLET PO SCH ×2 (09:10→16:44)
[2022-03-24] MEDS: OMEPRAZOLE 20 MG CAPSULE PO SCH (09:10)
[2022-03-24] MEDS: SERTRALINE HCL 50 MG TABLET PO SCH (09:10)
[2022-03-24] MEDS: BACITRACIN 28 GM OINTMENT TP SCH ×2 (09:11→16:44)
[2022-03-24 16:12] VITALS: BP 133/88
[2022-03-24] MEDS: LURASIDONE HCL 60 MG TABLET PO SCH (20:43)
[2022-03-25 08:04] VITALS: BP 119/79
[2022-03-25] MEDS: BENZTROPINE MESYLATE 1 MG TABLET PO SCH ×2 (09:05→17:00)
[2022-03-25] MEDS: OMEPRAZOLE 20 MG CAPSULE PO SCH (09:05)
[2022-03-25] MEDS: BACITRACIN 28 GM OINTMENT TP SCH ×2 (09:06→17:00)
[2022-03-25] MEDS: SERTRALINE HCL 50 MG TABLET PO SCH (09:06)
[2022-03-25] MEDS: ARIPiprazole ER SUSPENSION 400 MG PRE-FILLED DUAL CHAMBER SYRINGE IM SCH (09:52)
[2022-03-25 16:00] VITALS: BP 140/98
[2022-03-25] MEDS: LORazepam 2 MG TABLET PO PRN (17:45)
[2022-03-25] MEDS: HALOPERIDOL 5 MG TABLET PO PRN (17:45)
[2022-03-25] MEDS: LURASIDONE HCL 60 MG TABLET PO SCH (21:05)
[2022-03-26] MEDS: BENZTROPINE MESYLATE 1 MG TABLET PO SCH ×2 (08:18→16:06)
[2022-03-26] MEDS: SERTRALINE HCL 50 MG TABLET PO SCH (08:18)
[2022-03-26] MEDS: BACITRACIN 28 GM OINTMENT TP SCH ×2 (08:18→16:26)
[2022-03-26] MEDS: OMEPRAZOLE 20 MG CAPSULE PO SCH (08:18)
[2022-03-26 12:32] VITALS: BP 128/82
[2022-03-26] MEDS: ACETAMINOPHEN 325 MG TABLET PO PRN (12:32)
[2022-03-26 16:24] VITALS: BP 123/80
[2022-03-26] MEDS: LURASIDONE HCL 60 MG TABLET PO SCH (20:07)
[2022-03-27 07:56] LABS: COVID AG,FIA SOURCE NASAL SWAB
[2022-03-27] MEDS: BENZTROPINE MESYLATE 1 MG TABLET PO SCH ×2 (09:04→16:23)
[2022-03-27] MEDS: OMEPRAZOLE 20 MG CAPSULE PO SCH (09:04)
[2022-03-27] MEDS: SERTRALINE HCL 50 MG TABLET PO SCH (09:04)
[2022-03-27] MEDS: BACITRACIN 28 GM OINTMENT TP SCH ×2 (09:05→16:33)
[2022-03-27 10:44] VITALS: BP 119/76
[2022-03-27 17:09] VITALS: BP 136/82
[2022-03-27] MEDS: LURASIDONE HCL 60 MG TABLET PO SCH (20:33)
[2022-03-28] MEDS: OMEPRAZOLE 20 MG CAPSULE PO SCH (08:36)
[2022-03-28] MEDS: BACITRACIN 28 GM OINTMENT TP SCH ×2 (08:37→16:21)
[2022-03-28] MEDS: BENZTROPINE MESYLATE 1 MG TABLET PO SCH ×2 (08:37→16:21)
[2022-03-28] MEDS: SERTRALINE HCL 50 MG TABLET PO SCH (08:37)
[2022-03-28 08:55] VITALS: BP 129/81
[2022-03-28 16:29] VITALS: BP 110/79
[2022-03-28] MEDS: LURASIDONE HCL 60 MG TABLET PO SCH (20:12)
[2022-03-29 08:24] VITALS: BP 113/73
[2022-03-29] MEDS ORDERED: SERT-439 PO (09:04)
[2022-03-29] MEDS ORDERED: ARIP400S3 IM (09:04)
[2022-03-29] MEDS ORDERED: LURA60TA PO (09:04)
[2022-03-29] MEDS ORDERED: BENZ1TAB96 PO (09:04)
[2022-03-29] MEDS: OMEPRAZOLE 20 MG CAPSULE PO SCH (09:38)
[2022-03-29] MEDS: SERTRALINE HCL 50 MG TABLET PO SCH (09:38)
[2022-03-29] MEDS: BENZTROPINE MESYLATE 1 MG TABLET PO SCH (09:38)
[2022-03-29] MEDS: BACITRACIN 28 GM OINTMENT TP SCH (09:38)
== END 2022-03-29 11:30 | disposition home or self-care (01) | DRG 750 ==
LOC: EMS 15:24 → 3EI 12-29 01:00
PROVIDERS: ADMIT Psychiatry & Neurology Child & Adolescent Psychiatry; ATTEND Psychiatry & Neurology Child & Adolescent Psychiatry
PROC: 3E02340 Introduction of Influenza Vaccine into Muscle, Percutaneous Approach (ICD-10-PCS; 2021-12-29)
PROC: XW023U6 Introduction of COVID-19 Vaccine into Muscle, Percutaneous Approach, New Technology Group 6 (ICD-10-PCS; principal; 2022-03-18)
DX: F25.1 Schizoaffective disorder, depressive type (principal); F22 Delusional disorders; F79 Unspecified intellectual disabilities; F12.10 Cannabis abuse, uncomplicated; I10 Essential (primary) hypertension; F41.9 Anxiety disorder, unspecified; F32.A Depression, unspecified; R00.1 Bradycardia, unspecified; R62.50 Unspecified lack of expected normal physiological development in childhood; Z20.822 Contact with and (suspected) exposure to COVID-19; F17.210 Nicotine dependence, cigarettes, uncomplicated; F15.10 Other stimulant abuse, uncomplicated; F14.10 Cocaine abuse, uncomplicated; Z59.00 Homelessness unspecified; Z71.51 Drug abuse counseling and surveillance of drug abuser; Z79.899 Other long term (current) drug therapy; Z71.6 Tobacco abuse counseling; Z23 Encounter for immunization
CPT/HCPCS: 0064A; 71046; 80053; 80061; 81003; 85025; 87081; 90686; 91301; 99285; G0480; J0401; J1200; J1630; J2060; Q0162; Q9967; 36415-L1; 36415-TC; G0008

== ENCOUNTER 2023-10-09 08:50 | Emergency (ER) | payer MEDICAID ==
[~2023-10-09] VITALS: Ht 167.6 cm; Wt 68.2 kg
[~2023-10-09 08:50] MED LIST changes: +ARIP10642 IM; -ARIP15TA27 PO; +BENZ1TAB84 PO; +DIVA-112 PO; +DOCU-412 PO; +EPIN0.3P3 IM; +ESCI5TAB16 PO; +FAMO40TA7 PO; +GABA-1181 PO; -LURA20TA PO; -OMEP20 PO; +POLY119P3 PO; +QUET100T34 PO; +QUET25TA36 PO; +TRAZ-252 PO
[2023-10-09 08:58] VITALS: TEMP 98
[2023-10-09 10:37] VITALS: BP 132/63; PULSE 63; RESP 18
[2023-10-09] MEDS ORDERED: IBUPROFEN 600 MG TABLET PO ONE (13:00)
== END 2023-10-09 14:38 | disposition home or self-care (01) ==
LOC: EMS 08:50
DX: R10.13 Epigastric pain (principal); F32.A Depression, unspecified; F20.9 Schizophrenia, unspecified; F17.210 Nicotine dependence, cigarettes, uncomplicated; F14.90 Cocaine use, unspecified, uncomplicated; F12.90 Cannabis use, unspecified, uncomplicated; F15.90 Other stimulant use, unspecified, uncomplicated; Z98.890 Other specified postprocedural states
CPT/HCPCS: 99291; Z7502; Z7610